=== PATIENT | male | born 1970 | race Caucasian/White ===

== ENCOUNTER 2020-01-06 08:05 | Observation (INO) | payer BC ==
[~2020-01-06] VITALS: Ht 180.3 cm; Wt 95.3 kg
[2020-01-06 08:29] LABS: BASOPHILS # (AUTO) 0.1 /CMM (0.0-0.2); BASOPHILS % (AUTO) 0.7 % (0.0-2.0); EOSINOPHILS % (AUTO) 2.9 % (0.0-6.0); HEMATOCRIT 46 % (39-51); HEMOGLOBIN 15.4 g/dL (13.5-17.5); LYMPHOCYTES # (AUTO) 2.1 /CMM (0.8-4.8); LYMPHOCYTES % (AUTO) 29.6 % (20.0-44.0); MEAN CORPUSCULAR HGB CONC 34 g/dl (31.0-36.0); MEAN CORPUSCULAR VOLUME 90 fL (80-96); MONOCYTES # (AUTO) 0.5 /CMM (0.1-1.30); MONOCYTES % (AUTO) 7.8 % (2.0-12.0); NEUTROPHILS # (AUTO) 4.1 /CMM (1.8-8.9); PLATELET COUNT (AUTO) 165 /CMM (150-450); RED BLOOD CELL COUNT(AUTO) 5.08 MIL/uL (4.5-6.0)
--- NOTE | 2020-01-06 08:30 | NUR ---
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 On room air, breathing evenly and unlabored, connected to the monitor and pulse ox. kept comfortable, will continue to monitor accordingly.
--- NOTE | 2020-01-06 08:31 | NUR ---
blood drawned and IV access initiated and sent to lab
[2020-01-06 08:37] LABS: CALCIUM, SERUM 8.9 mg/dL (8.5-10.1); CARBON DIOXIDE 29 mmol/L (21-32); CHLORIDE 106 mmol/L (98-107); GLUCOSE 119 mg/dL (74-106); POTASSIUM 4.1 mmol/L (3.5-5.1); SODIUM SERUM 141 mmol/L (136-145); UREA NITROGEN, BLOOD 18 mg/dL (7-18)
[2020-01-06 08:43] LABS: ALANINE AMINOTRANSFERASE 38 U/L (12-78); ALBUMIN 4.2 g/dL (3.4-5.0); ALKALINE PHOSPHATASE 80 U/L (46-116); ASPARTATE AMINOTRANSFERASE 17 U/L (15-37); BILIRUBIN,DIRECT 0.1 mg/dL (0.0-0.2); BILIRUBIN,TOTAL 0.5 mg/dL (0.2-1.0); TOTAL PROTEIN, SERUM 7.3 g/dL (6.4-8.2)
[2020-01-06] MEDS ORDERED: NITROGLYCERIN PACKET 1 GM PACKET TD ONE (09:30)
[2020-01-06] MEDS ORDERED: ASPIRIN 325 MG TABLET PO ONE (09:30)
[2020-01-06] MEDS ORDERED: ASPIRIN 325 MG TABLET ONE (09:42)
[2020-01-06] MEDS ORDERED: NITROGLYCERIN PACKET 1 GM PACKET ONE (09:42)
--- NOTE | 2020-01-06 09:58 | NUR ---
received a covid 19 result from the lab "negative", notified
--- NOTE | 2020-01-06 10:09 | NUR ---
called [facility] for admission
--- NOTE | 2020-01-06 10:49 | NUR ---
GOT BED 325-2.
[2020-01-06] MEDS ORDERED: NITROGLYCERIN 0.4 MG/TAB BOTTLE SL PRN (11:30)
[2020-01-06] MEDS ORDERED: ONDANSETRON HCL/PF 4 MG/2 ML VIAL IVP PRN (11:30)
[2020-01-06] MEDS ORDERED: HYDROCODONE/APAP 5/325MG TABLET PO PRN (11:30)
[2020-01-06] MEDS ORDERED: MAG HYDROX/AL HYDROX/SIMETH 30 ML UDC PO PRN (11:30)
[2020-01-06] MEDS ORDERED: ACETAMINOPHEN 325 MG TABLET PO PRN (11:30)
[2020-01-06] MEDS ORDERED: MAGNESIUM HYDROXIDE 30 ML UDC PO PRN (11:30)
[2020-01-06] MEDS ORDERED: Z GUARD REMEDY 2 OZ OINT TP PRN (11:30)
--- NOTE | 2020-01-06 11:48 | NUR ---
report given to dale denis. pt awaiting transfer to floor.
--- NOTE | 2020-01-06 11:57 | NUR ---
wheeled patient via gurney accompanied by RN and emt in no distress. RN at bedside to assume care.
[2020-01-06 12:00] VITALS: BP 140/82
--- NOTE | 2020-01-06 12:05 | NUR ---
CRITICAL POWER INSTALL TECHNICIAN ADMITTING NOTE PATIENT ARRIVED BY SUJIT FROM ER. PATIENT AMBULATORY WITH STEADY GAIT TO BED. PATIENT IN BED RESTING COMFORTABLY. PATIENT IN NO ACUTE DISTRESS. NO SOB NOTED. PATIENT BREATHING IS EVEN AND UNLABORED. PATIENT ON CARDIAC MONITORING READING SINUS RHYTHM HR 65. PATIENT STATES NO PAIN AT THIS TIME. SAFETY PRECAUTIONS IN PLACE. PATIENT BED IS LOCKED AND IN LOWEST POSITION. CALL LIGHT WITHIN REACH. ISMAEL TEMPLE AWARE OF PATIENT ARRIVAL ON UNIT, WILL FOLLOW UP WITH ORDERS. WILL CONTINUE TO MONITOR.
[2020-01-06 12:10] VITALS: BP 140/82
[2020-01-06] MEDS: ENOXAPARIN SODIUM 40 MG/0.4 ML DISP.SYRIN SQ SCH (13:12)
[2020-01-06 16:00] VITALS: BP 121/69
--- NOTE | 2020-01-06 17:46 | NUR ---
ART EDITOR NOTE SPOKE WITH ISMAEL TEMPLE REGARDING PATIENT REQUEST TO CONTINUE HIS HOME MEDICATION OF CHLORPHENERAMINE 4 MG/ PSEUDOEPHEDRINE 60MG TAB FOR SEASON ALLERGIES AND NASAL DECONGESTION. PER ISMAEL TEMPLE MD ORDER TO CONTINUE CHLORPHENERAMINE 4 MG/ PSEUDOEPHEDRINE 60MG TAB Q4H PO PRN.
[2020-01-06] MEDS: PSEUDOEPHEDRINE PO PRN ×2 (18:36→23:21)
[2020-01-06] MEDS: CHLORPHENIRAMINE PO PRN ×2 (18:36→23:21)
--- NOTE | 2020-01-06 18:44 | NUR ---
AIR EXPORT OPERATIONS AGENT NOTE PATIENT REQUESTED HOME MEDICATION OF CHLORPHENERAMINE 4 MG/ PSEUDOEPHEDRINE 60MG TAB FOR NASAL DECONGESTION. HOME MEDICATION OF CHLORPHENERAMINE 4 MG/ PSEUDOEPHEDRINE 60MG TAB GIVEN ORDERED.
--- NOTE | 2020-01-06 18:49 | NUR ---
BOOK PUBLISHER CLOSING NOTE PATIENT IN BED RESTING COMFORTABLY. PATIENT IN NO ACUTE DISTRESS. NO SOB NOTED. PATIENT BREATHING IS EVEN AND UNLABORED. PATIENT ON CARDIAC MONITORING READING SINUS RHYTHM HR 70. PATIENT STATES NO PAIN AT THIS TIME. SAFETY PRECAUTIONS IN PLACE. PATIENT BED IS LOCKED AND IN LOWEST POSITION. PATIENT KEPT CLEAN, DRY, AND COMFORTABLE THROUGHOUT SHIFT. CALL LIGHT WITHIN REACH. WILL ENDORSE CARE TO PM SHIFT FOR WILLIAM.
--- NOTE | 2020-01-06 19:15 | NUR ---
INDUSTRIAL MAINTENANCE INSTRUCTOR OPENING NOTES: RECEIVED PATIENT IN BED, AWAKE, A/O X4. NO SOB NOTED. NO COMPLAIN OF PAIN. CALL LIGHT WITHIN REACH. BED IN LOWEST AND LOCKED POSITION.
[2020-01-06 20:00] VITALS: BP 141/76
[2020-01-06 20:13] VITALS: BP 141/76
[2020-01-07 00:41] VITALS: BP 128/70
--- NOTE | 2020-01-07 01:27 | NUR ---
PATIENT WANTS THE LEFT UPPER SIDERAIL DOWN.
[2020-01-07] MEDS: PSEUDOEPHEDRINE PO PRN ×2 (03:21→10:15)
[2020-01-07] MEDS: CHLORPHENIRAMINE PO PRN ×2 (03:21→10:15)
[2020-01-07 04:00] VITALS: BP 130/76
--- NOTE | 2020-01-07 06:09 | NUR ---
CMM INSPECTOR CLOSING NOTES: PATIENT IN BED, ASLEEP, EASILY AROUSABLE. NO S/S DISTRESS NOTED. NEEDS ATTENDED. CALL LIGHT WITHIN REACH. BED IN LOWEST AND LOCKED POSITION. NO COMPLAIN OF CHEST PAIN. WITH SEASONAL ALLERGY, MEDS GIVEN.
[2020-01-07 06:46] LABS: BASOPHILS # (AUTO) 0.1 /CMM (0.0-0.2); BASOPHILS % (AUTO) 0.7 % (0.0-2.0); EOSINOPHILS % (AUTO) 1.5 % (0.0-6.0); HEMATOCRIT 42 % (39-51); HEMOGLOBIN 14.2 g/dL (13.5-17.5); LYMPHOCYTES # (AUTO) 1.8 /CMM (0.8-4.8); LYMPHOCYTES % (AUTO) 19.8 % (20.0-44.0); MEAN CORPUSCULAR HGB CONC 33 g/dl (31.0-36.0); MEAN CORPUSCULAR VOLUME 90 fL (80-96); MONOCYTES # (AUTO) 0.7 /CMM (0.1-1.30); MONOCYTES % (AUTO) 7.3 % (2.0-12.0); NEUTROPHILS # (AUTO) 6.5 /CMM (1.8-8.9); NEUTROPHILS % (AUTO) 70.7 % (43.0-81.0); PLATELET COUNT (AUTO) 162 /CMM (150-450); RED BLOOD CELL COUNT(AUTO) 4.71 MIL/uL (4.5-6.0); WHITE BLOOD COUNT (AUTO) 9.2 K/uL (4.3-11.0)
[2020-01-07 06:59] LABS: THYROID STIMULATING HORMONE 2.214 uIU/mL (0.358-3.74)
[2020-01-07 07:14] LABS: CALCIUM, SERUM 9.2 mg/dL (8.5-10.1); MAGNESIUM 2.1 mg/dL (1.8-2.4); PHOSPHORUS 3.3 mg/dL (2.5-4.9); POTASSIUM 4.4 mmol/L (3.5-5.1)
[2020-01-07 07:35] LABS: CREATININE 0.8 mg/dL (0.6-1.3)
[2020-01-07 08:26] VITALS: BP 133/77
--- NOTE | 2020-01-07 08:45 | NUR ---
tele wagon winder: cardio consult seen by dr. thao with orders. orders acknowledged. consent obtained from pt re: cta procedure. pt verbalized understanding.
--- NOTE | 2020-01-07 08:52 | NUR ---
CT ANGIO HEART, ORDERED BY DR. LLAMAS A ROUTINE, NURSING MACHINE OPERATOR PACKAGING (IVETTE) IS AWARE AND NO NURSE AVAILABLE AT THE MOMENT.
[2020-01-07] MEDS ORDERED: ASPIRIN 81 MG TAB.CHEW PO SCH (09:00)
[2020-01-07] MEDS: ENOXAPARIN SODIUM 40 MG/0.4 ML DISP.SYRIN SQ SCH (09:17)
[2020-01-07] MEDS ORDERED: METOPROLOL TARTRATE 50 MG TABLET PO STA (10:13)
--- NOTE | 2020-01-07 11:30 | NUR ---
m/s inpatient care manager rn: notes pt down for cta via wheelchair accompanied by tech.
[2020-01-07 12:05] VITALS: BP 140/90
[2020-01-07] MEDS ORDERED: IOHEXOL-350 100 ML VIAL IV ONE (12:06)
[2020-01-07] MEDS ORDERED: CT SWABBABLE VALVE TRANS SET 1 EA INFUS.SET MC ONE (12:06)
[2020-01-07] MEDS ORDERED: IV NS 0.9% 250 ML IV ONE (12:06)
--- NOTE | 2020-01-07 12:30 | NUR ---
m/s assembler ping pong table: notes received order to discharge pt home with Discharge instructions <Discharge home if CTCA negative, Monitor for further chest pain, Followup A1C result. order acknowledged. Addendum: 01/07/20 at 1455 by ALEX BRUNNERN pt back from cta and having lunch. cta result pending, pt aware if negative, pt can go home.
--- NOTE | 2020-01-07 13:50 | NUR ---
m/s chemical sales representative: notes pt resting comfortable. denies chest pain or any discomfort. pt wants to shower. pt for d'c if cta negative, result is pending. pt aware. will continue to monitor.
--- NOTE | 2020-01-07 14:30 | NUR ---
m/s estimating engineer: notes dr. thao called cn and per dr. thao, cta is negative and pt can go home.
--- NOTE | 2020-01-07 15:10 | NUR ---
m/s restaurant attendant: notes discharge instructions given to pt and request education for hypertension and cholesterol. pt verbalized instructions and will f/u with dr. thao as outpatient. pt called his to pick him up. h/l removed with tip intact.
--- NOTE | 2020-01-07 15:20 | NUR ---
m/s client service and consulting manager: discharge discharge home in stable condition with all valuables accompanied by via private car.
== END 2020-01-07 15:20 | disposition home or self-care (01) ==
LOC: ER 08:10 → OBSER 10:49 → UNDOADMIN 11:51 → TELE 11:51 → MED 01-07 11:37 → UNDODISIN 01-07 15:20 → ER 01-07 19:00
PROVIDERS: ADMIT Nurse Practitioner Acute Care; ATTEND Nurse Practitioner Acute Care
DX: M94.0 Chondrocostal junction syndrome [Tietze] (principal); R73.9 Hyperglycemia, unspecified; Z87.891 Personal history of nicotine dependence; Z82.49 Family history of ischemic heart disease and other diseases of the circulatory system; Z83.3 Family history of diabetes mellitus
CPT/HCPCS: 36415 ×2; 71045; 75574; 80048 ×2; 80061; 80076; 83036; 83690; 83735; 84100; 84443; 84484 ×3; 85025 ×2; 87081; 87426; 93005 ×4; 99285; C9803; G0378 ×23; J1650 ×2; J7050; Q9967